=== PATIENT | male | born 1945 | race Caucasian/White ===

== ENCOUNTER 2021-01-18 15:41 | Outpatient (CLI) | payer OTHER | END 2021-01-18 15:47 | disposition home or self-care (01) | LOC: LAB 15:41 | PROVIDERS: ATTEND Urology | DX: N30.00 Acute cystitis without hematuria (principal); R82.79 Other abnormal findings on microbiological examination of urine ==

== ENCOUNTER 2021-02-15 13:40 | Outpatient (CLI) | payer OTHER | END 2021-02-15 13:42 | disposition home or self-care (01) | LOC: LAB 13:40 | PROVIDERS: ATTEND Urology | DX: N30.00 Acute cystitis without hematuria (principal); B96.29 Other Escherichia coli [E. coli] as the cause of diseases classified elsewhere ==

== ENCOUNTER → 2021-07-14 12:57 | Outpatient (CLI) | payer OTHER | END | disposition home or self-care (01) | LOC: LAB 12:57 | PROVIDERS: ATTEND Urology | DX: N30.00 Acute cystitis without hematuria (principal); R97.21 Rising PSA following treatment for malignant neoplasm of prostate ==